=== PATIENT | female | born 1985 | race Caucasian/White ===

== ENCOUNTER 2020-06-27 12:33 | Emergency (ER) | payer OTHER ==
[~2020-06-27] VITALS: Ht 175.3 cm; Wt 99.8 kg
[2020-06-27] MEDS ORDERED: PROGESTERO50 MG/1 M3 IM (12:48)
[2020-06-27] MEDS ORDERED: ESTRACE2 M3 PO (12:48)
[2020-06-27 13:30] VITALS: BP 137/88
== END 2020-06-27 13:31 | disposition home or self-care (01) ==
LOC: M.ERS 12:33
DX: U07.1 COVID-19 (principal)